=== PATIENT | female | born 1965 | race African-American/Black ===

== ENCOUNTER 2018-12-10 07:45 | Emergency (ER) | payer MEDICAID ==
[~2018-12-10] VITALS: Ht 167.6 cm; Wt 97.0 kg
[2018-12-10] MEDS ORDERED: KETOROLAC 60MG/2ML VIAL IM ONE (08:45)
[2018-12-10 09:48] VITALS: BP 122/66
== END 2018-12-10 09:49 | disposition home or self-care (01) ==
LOC: ER 07:45
DX: S62.630A Displaced fracture of distal phalanx of right index finger, initial encounter for closed fracture (principal); E03.9 Hypothyroidism, unspecified; W22.8XXA Striking against or struck by other objects, initial encounter; Y93.89 Activity, other specified; Y92.89 Other specified places as the place of occurrence of the external cause; Y99.8 Other external cause status
CPT/HCPCS: 29130; 73140; 96372; 99283; J1885